=== PATIENT | female | born 1950 | race Caucasian/White ===

== ENCOUNTER 2017-07-03 21:56 | Emergency (ER) | payer OTHER, MEDICAID ==
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
[2017-07-03] MEDS ORDERED: ACETAMINOPHEN 500 MG TAB ONE (23:13)
[2017-07-03 23:16] VITALS: BP 134/78; PULSE 78; RESP 18; TEMP 98.1; O2SAT 96
== END 2017-07-03 23:16 | disposition home or self-care (01) ==
DX: S09.90XA Unspecified injury of head, initial encounter (principal); I10 Essential (primary) hypertension; E11.9 Type 2 diabetes mellitus without complications; Z87.891 Personal history of nicotine dependence; Y08.89XA Assault by other specified means, initial encounter

== ENCOUNTER 2017-11-04 17:06 | Emergency (ER) | payer OTHER ==
[2017-11-04] MEDS ORDERED: IBUPROFEN 600 MG TAB PO ONE (17:13)
[2017-11-04] MEDS ORDERED: TDAP ADULT 0.5 ML INJ (BOOSTRIX) IM ONE (17:14)
[2017-11-04] MEDS ORDERED: IBUPROFEN 200 MG TAB PO ONE ×2 (17:27→18:33)
[2017-11-04] MEDS ORDERED: SKIN ADHESIVE (DERMABOND) 1 EACH TP ONE (17:58)
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
[2017-11-04 18:30] VITALS: BP 141/61; PULSE 81; RESP 18; TEMP 98.2; O2SAT 96
== END 2017-11-04 18:47 | disposition home or self-care (01) ==
LOC: EDUNIT#
PROC: 0HQ1XZZ Repair Face Skin, External Approach (ICD-10-PCS; principal; 2017-11-04)
DX: S09.90XA Unspecified injury of head, initial encounter (principal); S00.81XA Abrasion of other part of head, initial encounter; F17.200 Nicotine dependence, unspecified, uncomplicated; I10 Essential (primary) hypertension; E11.9 Type 2 diabetes mellitus without complications; Z23 Encounter for immunization; W01.198A Fall on same level from slipping, tripping and stumbling with subsequent striking against other object, initial encounter; Y93.89 Activity, other specified